=== PATIENT | female | born 1970 | race Caucasian/White ===

== ENCOUNTER 2019-03-07 11:46 | Inpatient (IN) | payer MEDICAID ==
[~2019-03-07] VITALS: Ht 165.1 cm; Wt 100.0 kg
[2019-03-07] MEDS ORDERED: ASPIRIN81 MG PO (11:57)
[2019-03-07] MEDS ORDERED: PHOSLO667 MG PO (11:58)
[2019-03-07] MEDS ORDERED: LANOXIN125 MCG PO (11:58)
[2019-03-07] MEDS ORDERED: COREG 3.1253.125 MG PO (11:58)
[2019-03-07] MEDS ORDERED: COLACE100 MG PO (11:58)
[2019-03-07] MEDS ORDERED: LEVEMIR IN100 UNITS/ SC ×2 (11:59→12:01)
[2019-03-07] MEDS ORDERED: HUMULIN R100 U/ML SC (11:59)
[2019-03-07] MEDS ORDERED: TIROSINT125 MCG PO (12:01)
--- NOTE | 2019-03-07 12:09 | NUR ---
POC GLUCOSE 229
--- NOTE | 2019-03-07 12:20 | NUR ---
URINE SPECIMEN SENT TO LAB VIA TUBE SYSTEM.
[2019-03-07 12:50] LABS: BASOPHILS 0.7 % (0-2); HEMATOCRIT 29.1 % (36.0-48.0); IMMATURE GRANULOCYTES 0.6 % (0-5); LYMPHOCYTES 9.3 % (15-50); MCH 24.7 pg (26.0-34.0); MCHC 30.9 g/dL (31.0-37.0); MCV 79.9 fL (80.0-100.0); MEAN PLATELET VOLUME 10.8 fL (7.4-10.4); NEUTROPHILS 77.4 % (40-80); PLATELET COUNT 388 10x3/uL (130-400); RBC 3.64 10x6/uL (4.00-5.40); RDW 17.7 % (11.5-14.5); WBC 12.1 10x3/uL (4.8-10.8)
[2019-03-07 13:32] LABS: ALBUMIN 1.9 g/dL (3.4-5.0); ANION GAP 12.5 mmol/L (8-16); BILIRUBIN - TOTAL 0.2 mg/dL (0.2-1.3); CALCIUM 8.8 mg/dL (8.5-10.1); CREATININE - SERUM 2.1 mg/dL (0.6-1.3); POTASSIUM - SERUM 4.5 mmol/L (3.5-5.1); PROTEIN - SERUM 6.7 g/dL (6.4-8.2)
[2019-03-07 13:41] LABS: DIGOXIN 0.74 ng/mL (0.90-2.00); THYROID STIMULATING HORMONE 2.85 uIU/mL (0.36-3.74)
--- NOTE | 2019-03-07 13:47 | NUR ---
1321 RECEIVED PATIENT TO ROOM 2135 FROM ED VIA [facility]. PATIENT MOVED FROM [facility] TO BED BY MAX ASSIST FROM STAFF. PATIENT IS ALERT/ORIENTED. 02 VIA HIGH FLOW NC AT 2L/MIN. 22 GAUGE IV TO LEFT SHOULDER PLACED VIA EMS THIS AM WHEN TRANSPORTED FROM PRISON TO [facility]. PATIENT HAS 16FR WATT CATHETER THAT SHE SAYS WAS PLACED AT [facility] THIS AM AND THAT SHE USUALLY DOES NOT HAVE A WATT CATHETER. PATIENT HAS A LARGE WOUND TO LEFT HIP WITH DRAINAGE. PATIENT STATES THE AREA WAS A BIG BLISTER THAT POPPED AND NOW THEY ARE PACKING IT. AT THIS TIME 4X4 BORDER GAUZE IN PLACE, EDGES PEELD BACK AND WOUND IS BEING PACKED WITH PACKING STRIP. NO SKIN BREAKDOWN TO BUTTOCKS. RIGHT CHEST HEMESPLIT. NO DISTRESS. CALL LIGHT WITHIN REACH. 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
--- NOTE | 2019-03-07 13:57 | NUR ---
SCDS APPLIED TO BILATERAL LOWER EXTREMITIES.
[2019-03-07 15:47] VITALS: BP 126/51
[2019-03-07 15:50] VITALS: BP 126/51; BMI 34.5
--- NOTE | 2019-03-07 17:21 | NUR ---
FSBS 242. 4 UNITS HUMALOG ADMINISTERED PER SLIDING SCALE. NO DISTRESS.
--- NOTE | 2019-03-07 18:17 | NUR ---
PATIENT SONS, DANIEL, CALLED TO CHECK ON THE PATIENT AND SAID HIS SISTER WOULD BE UP THERE TOMORROW WITH THE PATIENT. THANKED DANIEL FOR CALLING.
--- NOTE | 2019-03-07 20:22 | NUR ---
RECIEVED UP IN BED WITH HOB ELEVATED. EYES OPEN AND TV ON. ALERT AND ORIENTED X4. HX OF OLD CVA AND HAS SEVERE LOWER EXTREMITY WEAKNESS. ABLE TO USE HER HANDS. LIMITED ROM TO ARMS. BEDFAT AT THIS TIME. F/C INTACT WITH CLEAR YELLOW URINE DRAINING TO BEDSIDE DRAINAGE BAG. HEMOSPLIT TO RIGHT CHEST AND IV TO LEFT SHOULDER SL.. O2 @ 2 LITERS HIGH FLOW CANNULA. PT STATES SHE USES O2 @ SHELTER SOMETIMES.DSG TO LEFT HIP. CDI. DENIES ANY NEEDS AT THIS TIME.
[2019-03-07 20:36] VITALS: BP 134/65
--- NOTE | 2019-03-07 21:14 | NUR ---
FSBS 402. MD NOTIFIED WITH NO NEW ORDERS. WILL USE S/S.
[2019-03-07 21:45] LABS: APPEARANCE HAZY (CLEAR); BILIRUBIN NEGATIVE (NEGATIVE); COLOR YELLOW (YELLOW); GLUCOSE 1000 mg/dL (NEGATIVE); KETONE NEGATIVE (NEGATIVE); NITRITE NEGATIVE (NEGATIVE); PROTEIN 2+ mg/dL (NEGATIVE); SPECIFIC GRAVITY 1.015 (1.005-1.020); UROBILINOGEN NORMAL (NORMAL)
[2019-03-07 21:46] LABS: BACTERIA FEW /hpf (NONE SEEN); RED CELLS - URINE OCC /hpf (0-5); YEAST >1+ /hpf (NONE SEEN)
--- NOTE | 2019-03-08 04:36 | NUR ---
VOICED CONCERNS EARLIER ABOUT TAKING S/S INSULIN D/T HYPOGLYCEMIC EVENT. ASSURED HER I WOULD RECHEK BEFORE AM. RECHECKED AND FSBS 244. WILL RECHECK CLOSER MEAL TIME. NO S/S INSULIN GIVEN AT THIS TIME.
[2019-03-08 05:48] VITALS: BP 137/61
--- NOTE | 2019-03-08 06:09 | NUR ---
FSBS READS HI. CALLED LAB TO GET CMP RESULTED D/T READING. ARCENIO SAID HE WOULD CALL ME WITH RESULTS AND HAD JUST RECIEVED THE SAMPLE.
[2019-03-08 06:20] LABS: BASOPHILS 0.8 % (0-2); EOSINOPHILS 5.2 % (0-7); HEMATOCRIT 27.6 % (36.0-48.0); HEMOGLOBIN 8.5 g/dL (12-16); IMMATURE GRANULOCYTES 0.5 % (0-5); LYMPHOCYTES 13.3 % (15-50); MCH 24.5 pg (26.0-34.0); MCHC 30.8 g/dL (31.0-37.0); MCV 79.5 fL (80.0-100.0); MONOCYTES 9.2 % (2-11); PLATELET COUNT 385 10x3/uL (130-400); RBC 3.47 10x6/uL (4.00-5.40); RDW 17.4 % (11.5-14.5); WBC 10.9 10x3/uL (4.8-10.8)
[2019-03-08 06:26] LABS: ANION GAP 13.7 mmol/L (8-16); CALCIUM 8.5 mg/dL (8.5-10.1); CARBON DIOXIDE 24.9 mmol/L (21.0-32.0); CREATININE - SERUM 2.4 mg/dL (0.6-1.3); POTASSIUM - SERUM 4.6 mmol/L (3.5-5.1)
--- NOTE | 2019-03-08 07:38 | NUR ---
REPORT RECEIVED. WILL CONTINUE WITH POC. PT CURRENTLY LYING SEMI FOWLERS. CALL LIGHT W/I REACH. PT IS CURRENTLY RESTING AT THE MOMENT. RR EVEN AND UNLABORED ON 2L HIGH FLOW NC. L.SHOULDER PIV IS SALINE LOCKED. NO S/S OF DISTRESS NOTED. PT DENIES ANY NEEDS AT THIS TIME. WILL CTM.
[2019-03-08 08:25] VITALS: BP 165/91
[2019-03-08 11:28] VITALS: BP 167/70
--- NOTE | 2019-03-08 13:09 | NUR ---
PREVIOUS PIV INFILTRATED. STARTED NEW PIV TO THE LEFT HAND. 22GA X1 ATTEMPT. FLUSHED WITH 10ML NS TO CONFIRM PATENCY. PT TOLERATED WELL. PT DENIES ANY NEEDS. WILL CTM.
[2019-03-08 13:10] VITALS: BMI 34.4
[2019-03-08 15:27] VITALS: BP 186/74
--- NOTE | 2019-03-08 15:42 | NUR ---
WOUND CARE CONSULTED AND INFORMED OF THE CONSULT. WAS TOLD THEY WOULD BE BY TO CHECK IT OUT. PT CURRENTLY LYING SEMI FOWLERS RESTING. CALL LIGHT W/I REACH. LEFT HIP WOUND HAS DRESSING ON AND IS C/D/I. WILL CTM.
[2019-03-08 15:55] LABS: % SATURATION 7 % (15-55); IRON 17 ug/dl (35-150); TOTAL IRON BIND CAPACITY 242 ug/dl (260-445); UNSAT IRON BIND CAPACITY 225 ug/dl (150-375)
--- NOTE | 2019-03-08 16:43 | NUR ---
LEFT HIP HAS AN UNSTAGEABLE PRESSURE INJURY MEASURING 3CM X 4CM X 2CM X 2CM FROM 6-10 OCLOCK. THE WOUND BED IS COVERED IN CURRAN/HIGUERA NECROTIC TISSUE. PT STATES SHE HAS HAD IT FOR "A WHILE". RECOMMENDATIONS: -CONTINUE USING DAKINS WET TO DRY DRESSINGS -TURN/REPOSITION Q 2 HOURS -KEEP HEELS OFF MATTRESS -CALMOSEPTINE CREAM IF REDNESS OCCURS DUE TO INCONTINENCE WOUND CARE WILL MONITOR.
[2019-03-08 17:09] VITALS: Ht 165.1 cm; Wt 100.0 kg
--- NOTE | 2019-03-08 19:36 | NUR ---
RECIEVED RESTING IN BED WITH EYES CLOSED. EASILY AROUSES WITH VERBAL STIMULI. ALERT AND ORIENTED X4. REMAINS BEDFAST. O2@2 LITERS PER N/C. RIGHT CHEST HEMOSPLIT WITH DSG INTACT. IV TO LEFT HAND SL.. LIMITED ROM TO UPPER EXTREMITIES. F/C INTACT WITH CLEAR YELLOW URINE DRAINING TO BS DRAINAGE BAG. DSG TO LEFT HIP CDI. TELEMETRY IN PLACE. REQUIRES TOTAL CARE EXCEPT ABLE TO FEED SELF. SCD,S REMOVED AND SKIN INTACT WITH NO REDNESS OR EDEMA. DENIES ANY NEEDS AT THIS TIME.
[2019-03-08 20:00] VITALS: BP 143/54
[2019-03-09] VITALS: BP 135/62
[2019-03-09 04:00] VITALS: BP 126/63
--- NOTE | 2019-03-09 07:41 | NUR ---
ROUNDING DONE WITH PATIENT RESTING WITH EYES CLOSED. RESP ARE EVEN. ON 2L PER HIGH FLOW. ON HEART MONITOR SHWOING SR, HR 66. RIGHT CHEST HEMISPLIT SEEN, DRESSING C/D/I. LEFT HAND PIV SEEN WITH SALINE LOCK, ORANGE SWAB CAP IN USE. FOELY CATH PATENT WITH YELLOW URINE. IN REPORT, PATIENT IS TOTAL CARE.
[2019-03-09 09:56] VITALS: BP 126/73
--- NOTE | 2019-03-09 10:13 | NUR ---
DRESSING TO LEFT HIP CHANGED ORDER. WATT CATH SEEN WITH SEDIMENT IN TUBING. YUMIKO WASH USED TO YUMIKO AREA. TURNED TO LEFT SIDE WITH PILLOW BEHIND BACK AND ANOTHER ONE UNDER BILATERAL LEGS.
--- NOTE | 2019-03-09 11:08 | NUR ---
TO DIALYSIS VIA BED.
[2019-03-09 14:01] LABS: ANION GAP 11.6 mmol/L (8-16); CALCIUM 8.6 mg/dL (8.5-10.1); CARBON DIOXIDE 29.8 mmol/L (21.0-32.0)
[2019-03-09 14:06] LABS: BASOPHILS 0.6 % (0-2); CREATININE - SERUM 1.7 mg/dL (0.6-1.3); EOSINOPHILS 5.8 % (0-7); HEMATOCRIT 27.7 % (36.0-48.0); HEMOGLOBIN 8.6 g/dL (12-16); IMMATURE GRANULOCYTES 0.7 % (0-5); LYMPHOCYTES 9.4 % (15-50); MCH 24.2 pg (26.0-34.0); MCV 77.8 fL (80.0-100.0); MEAN PLATELET VOLUME 10.7 fL (7.4-10.4); MONOCYTES 7.4 % (2-11); NEUTROPHILS 76.1 % (40-80); PLATELET COUNT 370 10x3/uL (130-400); POTASSIUM - SERUM 3.4 mmol/L (3.5-5.1); RBC 3.56 10x6/uL (4.00-5.40); RDW 17.3 % (11.5-14.5); WBC 9.7 10x3/uL (4.8-10.8)
--- NOTE | 2019-03-09 14:19 | NUR ---
RETURNS FROM DIALYSIS.
[2019-03-09 15:12] LABS: FOLATE (FOLIC ACID) - SERUM 18.9 ng/mL (>3.0)
[2019-03-09 15:32] VITALS: BP 149/65
--- NOTE | 2019-03-09 18:21 | NUR ---
NO BOWEL MOVEMENT FOR THIS SHIFT. WILL PASS THIS ALONG.
--- NOTE | 2019-03-09 18:45 | NUR ---
PATIENT REQUESTED SANDWICH PAST EVENING MEAL, GIVEN.
[2019-03-09 20:00] VITALS: BP 174/67
[2019-03-10] VITALS: BP 133/79
[2019-03-10 04:00] VITALS: BP 126/46
[2019-03-10 05:29] LABS: ANION GAP 13.9 mmol/L (8-16); CALCIUM 8.6 mg/dL (8.5-10.1); CARBON DIOXIDE 27.1 mmol/L (21.0-32.0); MAGNESIUM - SERUM 2.1 mg/dL (1.8-2.4)
[2019-03-10 05:30] LABS: BASOPHILS 0.6 % (0-2); EOSINOPHILS 5.6 % (0-7); HEMATOCRIT 27.4 % (36.0-48.0); HEMOGLOBIN 8.5 g/dL (12-16); IMMATURE GRANULOCYTES 0.8 % (0-5); LYMPHOCYTES 13.2 % (15-50); MCH 24.3 pg (26.0-34.0); MCV 78.3 fL (80.0-100.0); MONOCYTES 9.7 % (2-11); NEUTROPHILS 70.1 % (40-80); PLATELET COUNT 402 10x3/uL (130-400); RDW 17.4 % (11.5-14.5); WBC 11.6 10x3/uL (4.8-10.8)
[2019-03-10 05:37] LABS: CREATININE - SERUM 2.4 mg/dL (0.6-1.3)
--- NOTE | 2019-03-10 07:30 | NUR ---
REPORT RECEIVED. WILL CONTINUE WITH POC. PT CURRENTLY LYING SEMI FOWLERS. CALL LIGHT W/I REACH. PT IS RESTING AT THE MOMENT. RR EVEN AND UNLABORED ON 2L HIGH FLOW NC. L.HAND PIV IS SALINE LOCKED. WATT IN PLACE AND DRAINING URINE. NO S/S OF DISTRESS NOTED. WILL CTM.
[2019-03-10 08:33] VITALS: BP 158/79
[2019-03-10 11:52] VITALS: BP 188/63
[2019-03-10] MEDS ORDERED: LEVOFLOXACIN500 MG PO (12:45)
--- NOTE | 2019-03-10 16:45 | NUR ---
PT DISCHARGED TO [facility] VIA IN TRANSPORT. PIV REMOVED WITH CATHETER TIP FULLY INTACT. PT SIGNED PROPER DISCHARGE INSTRUCTION AND REMOVED ALL VALUABLES FROM THE ROOM. TELEMTRY REMOVED AND RETURNED.
--- NOTE | 2019-03-10 21:05 | MORECARE ---
CASE MANAGEMENT DISCHARGE SUMMARY PATIENT: DONATO FREEMAN UNIT: [id number] ADM DATE: 03/07/19 AGE: 48 : 68 SEX: F ROOM/BED: D.213 AUTHOR: KIM REECE PHYSICIAN: REFERRING PHYSICIAN: NORBERTO ESTRELLA MD DATE OF SERVICE: 03/10/19 Discharge Plan Patient Name: DONATO FREEMAN [facility] [facility] 1970 Planned Disposition: Other Type of Facility Anticipated Discharge Date: 03/10/19 Discharge Date: 03/10/2019 Expected LOS: 3 Initial Reviewer: [email or web address] Initial Review Date: 03/07/2019 Generated: 03/10/19 10:04 pm Patient Name: DONATO FREEMAN Page [id number] at 2105 All edits/amendments must be made on the electronic document DICTATION DATE: 03/10/192103 TRACK REPAIR PERSON: BERNY 03/10/192103 RPT#: [id number] DC DATE:03/10/19 STATUS: DIS IN [facility] [address] [place] [address] END OF REPORT
--- NOTE | 2019-03-10 21:17 | MORECARE ---
CASE MANAGEMENT DISCHARGE SUMMARY PATIENT: DONATO FREEMAN UNIT: [id number] ADM DATE: 03/07/19 AGE: 48 : 68 SEX: F ROOM/BED: D.6735 AUTHOR: KIM REECE PHYSICIAN: REFERRING PHYSICIAN: NORBERTO ESTRELLA MD DATE OF SERVICE: 03/10/19 Discharge Plan Patient Name: DONATO FREEMAN Facility: [facility] : 1970 Planned Disposition: Other Type of Facility Anticipated Discharge Date: 03/10/19 Discharge Date: 03/10/2019 Expected LOS: 3 Initial Reviewer: [email or web address] Initial Review Date: 03/07/2019 Generated: 03/10/19 10:17 pm Comments DCP- Discharge Planning Updated by [email or web address]: Opal Ching on 03/10/19 8:[address] LATE ENTRY 1240 TC TO [facility] AND [phone]. SPOKE W/ TRANSCRIBING MACHINE MECHANIC. ADVISED THE PATIENT HAD ORDER FOR DISCHARGE BACK TO FACILITY. CM FAXED CLINICAL INFORMATION TO [phone]. ADVISED THE PATIENT IS ON OXYGEN 2/L HIGH FLOW. PATIENT ALSO HAS WATT CATHETER. HD- T/T/S PHARMACY PROVIDER [facility]- FACILITY PHARMACY TRANSPORATION TO BE ARRANGED BY AMBULANCE. CM CONTACTED [facility] TO ARRANGE TRANSPORTATION. PCS FORM COMPLETED. [facility] CALLED FACILITY REGARDING GUARANTEE OF PAYMENT IF MEDICAID DID NOT APPROVE. FACILITY ARRANGED FOR LATE PM TRANSPORTATION. CM FAXED DISCHARGE ORDERS, MEDICATIONS AND WOUND CARE ORDERS TO [phone]. NURSE TO SEND DAKINS SOLUTION. NURSE CALLED REPORT TO RECEIVING NURSE, CHRISTIAN, PATIENT BLOOD GLUCOSE IS ELEVATED HOWEVER PRIMARY NURSE STATES PATIENT HAS BEEN ORDERING DOUBLE PORTIONS. PATIENT DISCHARGED WITH WATT. PRIMARY NURSE REPORTED SHE RECEIVED 80 MGM DOSE OF IV LASIX. PATIENT DISCHARGED BACK TO MEDICAID BED. Last DP export: 03/10/19 8:05 p Patient Name: DONATO FREEMAN Page [id number] at 2116 All edits/amendments must be made on the electronic document DICTATION DATE: 03/10/192116 IT SECURITY MANAGER: BERNY 03/10/192116 RPT#: [id number] DC DATE:03/10/19 STATUS: DIS IN [facility] [address] [place] [address] END OF REPORT
== END 2019-03-10 16:45 | DRG 637 ==
LOC: D.ER 11:46 → D.M2 13:17
PROVIDERS: Emergency Medicine; Family Medicine; ADMIT Internal Medicine Nephrology; ATTEND Internal Medicine Nephrology
PROC: 5A1D70Z Performance of Urinary Filtration, Intermittent, Less than 6 Hours Per Day (ICD-10-PCS; principal; 2019-03-09)
DX: E11.649 Type 2 diabetes mellitus with hypoglycemia without coma (principal); E43 Unspecified severe protein-calorie malnutrition; N39.0 Urinary tract infection, site not specified; I13.2 Hypertensive heart and chronic kidney disease with heart failure and with stage 5 chronic kidney disease, or end stage renal disease; N18.6 End stage renal disease; E11.22 Type 2 diabetes mellitus with diabetic chronic kidney disease; I50.9 Heart failure, unspecified; Z99.2 Dependence on renal dialysis; E11.21 Type 2 diabetes mellitus with diabetic nephropathy; Z86.73 Personal history of transient ischemic attack (TIA), and cerebral infarction without residual deficits; Z68.34 Body mass index [BMI] 34.0-34.9, adult; D50.9 Iron deficiency anemia, unspecified

== ENCOUNTER 2019-05-28 06:50 | Day surgery (SDC) | payer MEDICAID ==
[~2019-05-28] VITALS: Ht 165.1 cm; Wt 82.1 kg
[~2019-05-28 06:50] MED LIST: ASPIRIN81 MG PO; COLACE100 MG PO; COREG 3.1253.125 MG PO; HUMULIN R100 U/ML SC; LANOXIN125 MCG PO; LEVEMIR IN100 UNITS/ SC; LEVOFLOXACIN500 MG PO; PHOSLO667 MG PO; TIROSINT125 MCG PO
[2019-05-28 07:40] LABS: BASOPHILS 0.9 % (0-2); EOSINOPHILS 3.8 % (0-7); HEMATOCRIT 35.9 % (36.0-48.0); HEMOGLOBIN 11.2 g/dL (12-16); IMMATURE GRANULOCYTES 1.7 % (0-5); LYMPHOCYTES 10.9 % (15-50); MCH 26.7 pg (26.0-34.0); MCHC 31.2 g/dL (31.0-37.0); MCV 85.5 fL (80.0-100.0); MEAN PLATELET VOLUME 10.2 fL (7.4-10.4); MONOCYTES 14.1 % (2-11); NEUTROPHILS 68.6 % (40-80); PLATELET COUNT 578 10x3/uL (130-400); RDW 17.4 % (11.5-14.5); WBC 13.8 10x3/uL (4.8-10.8)
[2019-05-28 07:42] LABS: ANION GAP 15.1 mmol/L (8-16); CALCIUM 9.8 mg/dL (8.5-10.1); CARBON DIOXIDE 25.7 mmol/L (21.0-32.0); CREATININE - SERUM 2.6 mg/dL (0.6-1.3); POTASSIUM - SERUM 3.8 mmol/L (3.5-5.1)
[2019-05-28 08:14] LABS: INR 1.22 (0.85-1.17); PROTIME 14.9 SECONDS (11.6-15.0)
[2019-05-28 08:59] VITALS: Ht 165.1 cm; Wt 82.1 kg
--- NOTE | 2019-06-01 10:48 | OP ---
PATIENT NAME: DONATO FREEMAN MEDICAL RECORD: [id number] :68 LOCATION:[facility] ADMISSION DATE: SURGEON: SEBAS GUTHRIE MD DATE OF OPERATION: 05/28/2019 REFERRING PHYSICIAN: Dr. Juan Landin of [place], Dr. Umair Domingo of [place], and Dr. Pratik Goodman of [place]. PREOPERATIVE DIAGNOSES: End-stage renal disease and dependence on hemodialysis, type 1 diabetes with diabetic nephropathy and dependence on hemodialysis. POSTOPERATIVE DIAGNOSES: End-stage renal disease and dependence on hemodialysis, type 1 diabetes with diabetic nephropathy and dependence on hemodialysis. OPERATION PERFORMED: Implantation of a Baldwin Propaten PTFE AV graft 6-mm diameter straight standard wall thickness in a loop configuration in the left arm between the proximal brachial artery and the proximal basilic vein in a "pinky pull" direction. SURGEON: Sebas Guthrie MD ANESTHESIA: General with LMA per OYSTER HARVESTER. PREOPERATIVE NOTE: Ms. Freeman is an unfortunate 48-year-old white female, diabetic with end-stage renal disease, now on hemodialysis. She is a chronic halfway patient at this point. She is dialyzing with a right IJ TDC and needs long-term access. She is brought to the operating room at this time for implantation of an AV graft in the left arm. She has small veins. I plan to implant a PTFE graft. There is no history of recurring staphylococcal infections or severe thrombophilia. Under general anesthesia in supine position, the patient was prepped and draped in a sterile manner. I examined her with ultrasound and confirmed that they were only small veins in the arm, which generally were not suitable for use for creation of a fistula. I identified the basilic vein and the brachial artery between the axilla and elbow and confirmed a proximal brachial artery anastomosis and proximal basilic vein anastomosis for the graft would be best with reduced chances of steal. The patient does have atherosclerotic change in her brachial artery. I made a longitudinal incision and exposed the artery and vein. They were controlled with Silastic loops. I chose a 6-mm straight standard wall thickness Propaten graft. One end was beveled and the vein was opened and flushed proximally and distally with heparinized saline and the new graft was anastomosed end-to-side, end of graft to side of vein with running 6-0 Prolene and the suture line was treated with a fibrin sealant. The suture line was then found to be hemostatic. The graft was flushed with heparinized saline and a counter incision made on the arm just above the antecubital space. The graft was pulled from the axilla down to the counter incision and then back up to the proximal incision with laterally and anteriorly directed widely curving course. The graft was shortened and beveled. The artery was occluded with Silastic loops. It was opened and flushed with heparinized saline proximally and distally. I did note the presence of a calcific atherosclerotic change within that artery. The new graft was then anastomosed end of graft to side of artery OPERATIVE REPORT [id number] PETEDONATOMatr GAGNON with running 6-0 Prolene and that suture line also was treated with a fibrin sealant. The suture line was hemostatic when the occluding clamps and loops were released and excellent flow established in the new AV graft. The wound was irrigated with Ancef/gentamicin solution and infiltrated with 0.25% Marcaine without epinephrine. Both incisions were closed with interrupted inverted 3-0 Vicryl and running intracuticular 4-0 Monocryl and Dermabond glue. The incisions were dressed with Maxorb Ag, Tegaderm, and Cavilon skin prep and the patient awakened from her anesthetic, was taken to the recovery room. There was minimal blood loss, maybe 5 cc during the procedure, none was replaced. Sponges, instruments, and needles were accounted for. No drain was used and no surgical specimen was submitted for histopathology. PLAN: The patient will be discharged to return to her halfway today and plans made for her to follow up with me in my office next week. We will want to wait 2 weeks before her new graft was accessed for the first time. After the graft has been serving successfully is a reliable dialysis access for at least a week she will be referred to [facility] for a TDC removal. TRANSINT:[id number] Voice Confirmation ID: [id number] DOCUMENT ID: [id number] CC: Juan Landin MD, [facility] SEBAS GUTHRIE MD at 1048 CC: PRATIK GOODMAN MD and UMAIR DOMINGO MD [id number] DICTATION DATE: 05/28/19 164 TRUCK HOP: 05/28/192125 [facility] 05/28/19 [facility] [address] [place] [address]
== END 2019-05-28 17:30 ==
LOC: D.OPS 06:50
PROVIDERS: Surgery; ATTEND Internal Medicine Nephrology
DX: E10.22 Type 1 diabetes mellitus with diabetic chronic kidney disease (principal); I13.2 Hypertensive heart and chronic kidney disease with heart failure and with stage 5 chronic kidney disease, or end stage renal disease; I50.9 Heart failure, unspecified; N18.6 End stage renal disease; E10.21 Type 1 diabetes mellitus with diabetic nephropathy; E10.51 Type 1 diabetes mellitus with diabetic peripheral angiopathy without gangrene; I70.298 Other atherosclerosis of native arteries of extremities, other extremity